=== PATIENT | male | born 2005 | race African-American/Black ===

== ENCOUNTER 2024-12-20 10:16 | Emergency (ER) | payer MEDICAID, OTHER ==
[~2024-12-20] VITALS: Ht 180.3 cm; Wt 69.0 kg
[2024-12-20 10:21] VITALS: TEMP 36.9; O2SAT 100
[2024-12-20] MEDS: ACETAMINOPHEN 500MG TABLET PO ONE (10:58)
[2024-12-20] MEDS: BACITRACIN ZINC OINT UDPKT TOP ONE (10:59)
[2024-12-20] MEDS: LIDOCAINE HCL 1% 20ML VIAL INFIL ONE (11:00)
[2024-12-20] MEDS: TETANUS, DIPHTHERIA, PERTUSSIS VAC/PF 0.5ML (>10YR OLD) IM ONE (11:00)
[2024-12-20] MEDS ORDERED: BO1 TP (12:01)
[2024-12-20 12:24] VITALS: BP 133/75; PULSE 66; RESP 18; O2SAT 100
== END 2024-12-20 13:08 | disposition home or self-care (01) ==
LOC: ER 10:16
DX: S61.411A Laceration without foreign body of right hand, initial encounter (principal); Z91.030 Bee allergy status; W08.XXXA Fall from other furniture, initial encounter; Y93.89 Activity, other specified; Y92.89 Other specified places as the place of occurrence of the external cause; Y99.8 Other external cause status
CPT/HCPCS: 99283; 73120; 90715; 12001; 90471; J2003